=== PATIENT | male | born 2000 | race Caucasian/White ===

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

== ENCOUNTER 2021-01-04 19:36 | Emergency (ER) | payer OTHER ==
[~2021-01-04 19:36] MED LIST changes: +ROBAXIN500 MG PO
[2021-01-04] MEDS ORDERED: CYCLOBENZAPRINE10 MG PO (20:21)
[2021-01-04] MEDS ORDERED: MEDROL 4MG DOSEP4 MG PO (20:21)
[2021-01-04] MEDS ORDERED: NAPROXEN500 MG PO (20:21)
== END 2021-01-04 20:50 | disposition home or self-care (01) ==
LOC: FER 19:36
DX: G89.29 Other chronic pain (principal); M54.5 Low back pain; Z87.81 Personal history of (healed) traumatic fracture
CPT/HCPCS: 99283; J1885

== ENCOUNTER 2021-05-06 20:52 | Emergency (ER) | payer OTHER ==
[~2021-05-06 20:52] MED LIST changes: +CYCLOBENZAPRINE10 MG PO; +MEDROL 4MG DOSEP4 MG PO; +NAPROXEN500 MG PO
[2021-05-06 22:52] LABS: INFLUENZA A NAA NEGATIVE (NEGATIVE)
[2021-05-06 23:10] LABS: CORONAVIRUS 2019 SARS-COV-2 POSITIVE (NEGATIVE)
[2021-05-06] MEDS ORDERED: IBUPROFEN800 MG PO (23:23)
[2021-05-06] MEDS ORDERED: ONDANSETRON ODT4 MG SL (23:23)
== END 2021-05-06 23:47 | disposition home or self-care (01) ==
LOC: FER 20:52
PROVIDERS: Emergency Medicine Emergency Medical Services
DX: U07.1 COVID-19 (principal); F17.200 Nicotine dependence, unspecified, uncomplicated
CPT/HCPCS: 71046; U0002

== ENCOUNTER 2021-06-18 16:05 | Emergency (ER) | payer OTHER ==
[~2021-06-18 16:05] MED LIST changes: +ONDANSETRON ODT4 MG SL
== END 2021-06-18 18:35 | disposition left against medical advice (07) ==
LOC: FER 16:05
DX: S32.019A Unspecified fracture of first lumbar vertebra, initial encounter for closed fracture (principal); S32.029A Unspecified fracture of second lumbar vertebra, initial encounter for closed fracture; S32.039A Unspecified fracture of third lumbar vertebra, initial encounter for closed fracture; R07.81 Pleurodynia; M54.6 Pain in thoracic spine; F17.210 Nicotine dependence, cigarettes, uncomplicated; W14.XXXA Fall from tree, initial encounter
CPT/HCPCS: 71250; 72128; 72131

== ENCOUNTER 2021-10-13 00:32 | Emergency (ER) | payer OTHER ==
[2021-10-13] MEDS ORDERED: NAPROXEN500 MG PO (02:39)
[2021-10-13] MEDS ORDERED: NORCO 5-325 TA1 EACH PO (02:39)
== END 2021-10-13 02:45 | disposition home or self-care (01) ==
LOC: FER 00:32
DX: S32.039A Unspecified fracture of third lumbar vertebra, initial encounter for closed fracture (principal); M54.50 Low back pain, unspecified; M25.512 Pain in left shoulder; F17.210 Nicotine dependence, cigarettes, uncomplicated; V49.40XA Driver injured in collision with unspecified motor vehicles in traffic accident, initial encounter
CPT/HCPCS: 70450; 72125; 72128; 72131; 73020